=== PATIENT | female | born 1950 | race Caucasian/White ===

== ENCOUNTER 2017-09-03 09:36 | Outpatient (CLI) | payer OTHER | END 2017-09-03 21:50 | disposition home or self-care (01) | LOC: SMA 09:36 | PROVIDERS: ATTEND Family Medicine | DX: Z12.31 Encounter for screening mammogram for malignant neoplasm of breast (principal) | CPT/HCPCS: G0202 ==

== ENCOUNTER 2018-09-16 11:35 | Outpatient (CLI) | payer OTHER | END 2018-09-16 18:00 | disposition home or self-care (01) | LOC: SMA 11:35 | PROVIDERS: ATTEND Family Medicine | DX: Z12.31 Encounter for screening mammogram for malignant neoplasm of breast (principal) | CPT/HCPCS: 77067 ==